=== PATIENT | male | born 1990 | race Two or more races ===

== ENCOUNTER 2020-09-25 12:12 | Emergency (ER) | payer OTHER ==
[~2020-09-25] VITALS: Ht 167.6 cm; Wt 79.5 kg
[2020-09-25] MEDS ORDERED: METHOCARBAMOL 500 MG TABLET PO ONE (13:15)
[2020-09-25] MEDS ORDERED: KETOROLAC TROMETHAMINE 10 MG TABLET PO ONE (13:15)
[2020-09-25 15:10] VITALS: BP 138/83
== END 2020-09-25 15:54 | disposition home or self-care (01) ==
LOC: EMS 12:16
DX: S16.1XXA Strain of muscle, fascia and tendon at neck level, initial encounter (principal); S70.02XA Contusion of left hip, initial encounter; S90.02XA Contusion of left ankle, initial encounter; V89.2XXA Person injured in unspecified motor-vehicle accident, traffic, initial encounter; Y93.89 Activity, other specified; Y92.488 Other paved roadways as the place of occurrence of the external cause; Y99.0 Civilian activity done for income or pay
CPT/HCPCS: 70450; 72125; 99285